=== PATIENT | female | born 1955 | race Asian ===

== ENCOUNTER 2021-10-24 11:54 | Outpatient (CLI) | payer OTHER | END 2021-10-24 19:00 | disposition home or self-care (01) | LOC: RAD 11:54 | PROVIDERS: ATTEND Internal Medicine | DX: J40 Bronchitis, not specified as acute or chronic (principal) ==

== ENCOUNTER 2021-12-03 16:27 | Outpatient (CLI) | payer OTHER ==
[2021-12-03 17:18] LABS: POTASSIUM 4.6 mmol/L (3.6-5.2)
[2021-12-03 17:35] LABS: PLATELET COUNT 376 K/uL (152-353)
== END 2021-12-03 19:10 | disposition home or self-care (01) ==
LOC: LAB 16:27
PROVIDERS: ATTEND Internal Medicine
DX: Z00.00 Encounter for general adult medical examination without abnormal findings (principal); Z13.820 Encounter for screening for osteoporosis; Z79.899 Other long term (current) drug therapy
CPT/HCPCS: 80053; 80061; 81000; 82306; 84439; 84443; 85027

== ENCOUNTER 2022-01-31 09:34 | Outpatient (CLI) | payer OTHER | END 2022-01-31 18:59 | disposition home or self-care (01) | LOC: US 09:34 | PROVIDERS: ATTEND Internal Medicine | DX: R60.0 Localized edema (principal) ==